=== PATIENT | female | born 1995 | race Caucasian/White ===

== ENCOUNTER 2021-11-06 15:16 | Emergency (ER) | payer BC, SELFPAY ==
[2021-11-06 15:16] VITALS: BP 121/83; PULSE 72; RESP 16; TEMP 36.8; O2SAT 100; BMI 27.0
--- NOTE | 2021-11-06 15:35 | EX.ED.GENINJ ---
HPI History of Present Illness Chief Complaint: Wound Informant: patient Onset/Context/Timing Onset: Today Mechanism/Context: other (Cat scratches) Location: Scalp, face, bilateral hands Current Severity: Gone Associated Symptoms Associated Symptoms: Negative for Parasthesias, Weakness and Loss of consciousness Narrative Narrative: Patient is with cat scratches to her scalp, face, and hands. Patient states she broke up a fight between 2 cats and was scratched by the cat's. Patient does not think she was bitten by the cat. Patient states she has a deep scratch in her scalp. Patient denies any paresthesias or weakness. Patient is unsure of her last tetanus. Patient denies any bleeding at the present time. Tetanus Immunization: Unknown PFSH PFSH Medical History no medical history no medical history Home Medications amoxicillin-pot clavulanate 875 mg PO Q12H #20 tablet 11/06/21 [Rx Last Taken Unknown] Allergy/AdvReac Type Severity Reaction Status Date / Time No Known Allergies Allergy Verified 11/06/21 15:18 Family History no significant family his Surgical History no surgical history no surgical history Social History Smoking Status: Never smoker ROS ROS ED Constitutional Constitutional ED: Denies chills or fever(s) Eyes Eyes: Denies blurry vision or change in vision ENT ENT ED: Denies rhinorrhea or sore throat Cardiovascular Cardiovascular: Denies chest pain or palpitations Respiratory/Chest Respiratory/Chest: Denies cough or dyspnea Gastrointestinal Gastrointestinal: Denies nausea or vomiting Genitourinary Genitourinary ED: Denies dysuria or hematuria Musculoskeletal Musculoskeletal: Denies back pain or neck pain Integumentary Reports Abrasions; Denies abscess or rash Neurologic Neurologic: Denies headache(s) or weakness Allergic/Immunologic Allergic/Immunologic ED: Denies mouth swelling or urticaria EXAM Physical Exam Const Vital Signs: 11/06/21 15:16 Temperature 98.2 F Temperature Source Temporal Pulse Rate 72 Respiratory Rate 16 Blood Pressure 121/83 H Blood Pressure Mean 95 Pulse Ox 100 Oxygen Delivery Method Room Air Positive well nourished and well developed General Appearance ED: well developed HEENT HEENT Narrative: There are superficial abrasions over the scalp and face. There is 1 abrasion in the scalp that is deeper than the rest of them. It goes into the subcutaneous tissue. There is minimal gapping of the wound margins. There is no active bleeding. There are no foreign bodies. Neck full ROM General: Negative for tenderness Extremity full ROM Extremity Narrative: There are superficial abrasions noted over the dorsal aspects of the hands bilaterally. There is no active bleeding. There is full range of motion. General Extremety ED: Negative for tenderness Neuro oriented x3, CN's II-XII intact bilaterally, moves all extremities, no focal motor deficits and no sensory deficits noted Sensorium / Orientation: alert Psych mental status grossly normal MDM MDM MDM Narrative Medical decision making narrative: Patient was given a tetanus booster here. Patient was given a dose of Augmentin here. Patient was given a prescription for Augmentin to cover for possible cat bites. Patient was instructed to keep the wounds clean and dry. Patient was instructed to follow-up with her primary care physician in 5 to 7 days. Patient understood and was agreeable with the plan. All questions were answered. Discharge Plan Triage Chief Complaint: Wound ED Provider: Jerry Dozier Dx/Rx/DC Orders Clinical Impression: Cat scratch of multiple sites Instructions: Animal Bites and Scratches Prescriptions: New amoxicillin-pot clavulanate [amoxicillin-pot clavulanate] 875 MG tablet 875 mg PO Q12H Qty: 20 RF: 0 Primary Care Provider: NOT,DEFINED Referrals: NOT,DEFINED [Primary Care Provider] - 5-7 Days Disposition Disposition: Home, Self Care
[2021-11-06] MEDS: Amox/Clavulanate 875 MG Tablet PO (15:49)
[2021-11-06] MEDS: Diphth,Pertuss(Acell),Tet Vac 0.5 ML Vial IM (15:49)
== END 2021-11-06 16:02 | disposition home or self-care (01) ==
PROVIDERS: Emergency Provider Emergency Medicine; Visit Provider Emergency Medicine
DX: S00.01XA Abrasion of scalp, initial encounter (principal); S00.81XA Abrasion of other part of head, initial encounter; S60.511A Abrasion of right hand, initial encounter; S60.512A Abrasion of left hand, initial encounter; W55.03XA Scratched by cat, initial encounter; Y93.9 Activity, unspecified; Y92.9 Unspecified place or not applicable; Z23 Encounter for immunization
CPT/HCPCS: 90471; 90715; 99282